=== PATIENT | female | born 1960 | race Caucasian/White ===

== ENCOUNTER 2017-08-26 06:46 | Inpatient (IN) | payer OTHER ==
[2017-08-26] MEDS ORDERED: ROCURONIUM 50 MG INJ ×2 (07:00→09:24)
[2017-08-26] MEDS ORDERED: EPHEDrine SULFATE 50 MG/5 ML SYG (07:00)
[2017-08-26] MEDS ORDERED: morphine SULFATE/PF (10 MG/10 ML) INJ (09:22)
[2017-08-26] MEDS ORDERED: ACETAMINOPHEN 1000MG/100ML IV 100 ML (09:22)
[2017-08-26] MEDS ORDERED: MIDAZOLAM 1 MG/ML 2 ML INJ ×3 (09:22→11:33)
[2017-08-26] MEDS ORDERED: CEFAZOLIN 1 GM INJ (09:22)
[2017-08-26] MEDS ORDERED: PROPOFOL 20 ML (09:22)
[2017-08-26] MEDS ORDERED: ROPIVACAINE 0.5 % 30 ML VIAL (09:23)
[2017-08-26] MEDS: LABETALOL HCL 20MG INJ IV (10:32)
[2017-08-26] MEDS ORDERED: TRANEXAMIC ACID 1,000 MG/10 ML VIAL IV (11:00)
[2017-08-26] MEDS: POLYMYXIN B 500000 UNIT INJ (12:09)
[2017-08-26] MEDS: BACITRACIN 50000 UNITS INJ (12:09)
[2017-08-26] MEDS: POLYMYXIN/BACITRACIN 1L IRRIG (12:10)
[2017-08-26] MEDS ORDERED: DEXAMETHASONE 4 MG/ML 1 ML INJ (12:25)
[2017-08-26] MEDS ORDERED: METOCLOPRAMIDE 10 MG INJ (12:25)
[2017-08-26] MEDS ORDERED: SUGAMMADEX SODIUM 200 MG/2 ML VIAL IV (12:25)
[2017-08-26] MEDS ORDERED: KETOROLAC 30 MG INJ (12:25)
[2017-08-26] MEDS ORDERED: ONDANSETRON 4 MG INJ (12:25)
[2017-08-26] MEDS ORDERED: FENTAnyl 50 MCG/ML VIAL IV ×3 (14:00)
[2017-08-26] MEDS ORDERED: METOCLOPRAMIDE 10 MG INJ IV (14:00)
[2017-08-26] MEDS ORDERED: EPHEDrine SULFATE 50 MG/5 ML SYG IV (14:00)
[2017-08-26] MEDS ORDERED: ACETAMINOPHEN 500 MG TAB PO (14:00)
[2017-08-26] MEDS ORDERED: DIPHENHYDRAMINE 50 MG INJ IV ×2 (14:00)
[2017-08-26] MEDS ORDERED: LABETALOL HCL 20MG INJ IV (14:00)
[2017-08-26] MEDS ORDERED: MEPERIDINE 25 MG INJ IV (14:00)
[2017-08-26] MEDS ORDERED: NALOXONE (0.4 MG/ML) INJ IV ×2 (14:00)
[2017-08-26] MEDS ORDERED: ALBUMIN HUMAN 5% 250 ML IV (14:00)
[2017-08-26] MEDS ORDERED: morphine 2 MG INJ IV (14:00)
[2017-08-26] MEDS ORDERED: HYDROmorphONE 0.5 MG/0.5 ML SYG IV ×2 (14:00)
[2017-08-26] MEDS ORDERED: hydrALAzine 20 MG INJ IV (14:00)
[2017-08-26] MEDS ORDERED: HYDROmorphONE (0.2 MG/ML) 10ML SYG IV ×3 (14:00)
[2017-08-26] MEDS ORDERED: oxyCODONE 5 MG TAB PO (14:00)
[2017-08-26] MEDS ORDERED: HYDROCODONE/APAP (5/325) TAB PO (14:00)
[2017-08-26] MEDS ORDERED: OXYCODONE/ACETAMINOPHEN (5/325) TAB PO ×2 (14:00)
[2017-08-26] MEDS ORDERED: NALBUPHINE HCL (10 MG/1 ML) INJ IV (14:00)
[2017-08-26] MEDS: ONDANSETRON 4 MG INJ IV ×2 (14:00→19:18)
[2017-08-26] MEDS ORDERED: ONDANSETRON 4 MG INJ IV ×2 (14:00)
[2017-08-26] MEDS: CEFAZOLIN 1 GM/50 ML (PMX) 50 ML IVPB ×2 (14:27→21:04)
[2017-08-26] MEDS: DOCUSATE SODIUM 100 MG CAP PO (14:28)
[2017-08-26] MEDS: morphine 2 MG INJ IV (21:04)
[2017-08-27] MEDS: ONDANSETRON 4 MG INJ IV ×2 (02:00→09:09)
[2017-08-27] MEDS: morphine 2 MG INJ IV ×3 (03:35→23:28)
[2017-08-27 04:58] LABS: ADD MAN DIFF? NO
[2017-08-27 05:01] LABS: BASOPHILS % 0.2 % (0.0-2.0); HEMATOCRIT 35.8 % (37.0-47.0); HEMOGLOBIN 12.2 g/dl (12.0-16.0); LYMPHOCYTES # 1.4 10^3/ul (0.8-2.9); MEAN CORPUSCULAR HEMOGLOBIN 32.6 pg (29.0-33.0); MEAN CORPUSCULAR HGB CONC 34.1 g/dl (32.0-37.0); MEAN CORPUSCULAR VOLUME 95.7 fl (82.0-101.0); MEAN PLATELET VOLUME 9.3 fl (7.4-10.4); MONOCYTE # 1.2 10^3/ul (0.3-0.9); MONOCYTES % 9.1 % (0.0-11.0); NEUTROPHIL # 10.1 10^3/ul (1.6-7.5); NEUTROPHILS % 79.5 % (39.0-77.0); PLATELET COUNT 268 10^3/UL (140-415); RED BLOOD COUNT 3.74 10^6/ul (4.20-5.40); RED CELL DISTRIBUTION WIDTH 13.5 % (11.5-14.5)
[2017-08-27 05:01] LABS: WHITE BLOOD COUNT 12.7 10^3/ul (4.8-10.8)
[2017-08-27] MEDS: CEFAZOLIN 1 GM/50 ML (PMX) 50 ML IVPB (05:28)
[2017-08-27 05:43] LABS: ANION GAP 16 (8-16); BLOOD UREA NITROGEN 26 mg/dl (7-20); CALCIUM 9.4 mg/dl (8.4-10.2); CARBON DIOXIDE 30 mmol/L (21-31); CHLORIDE 101 mmol/L (97-110); CREATININE 1.19 mg/dl (0.44-1.00); GLUCOSE 116 mg/dl (70-220); POTASSIUM 4.9 mmol/L (3.5-5.1); SODIUM 142 mmol/L (135-144)
[2017-08-27 06:28] LABS: ADD UMIC YES; UR ASCORBIC ACID 40 mg/dL (NEGATIVE); UR BILIRUBIN (Dip) NEGATIVE (NEGATIVE); UR BLOOD (Dip) NEGATIVE (NEGATIVE); UR CLARITY SLIGHTLY CLOUDY (CLEAR); UR COLOR YELLOW (YELLOW); UR GLUCOSE (Dip) NEGATIVE (NEGATIVE); UR KETONES (Dip) TRACE mg/dL (NEGATIVE); UR LEUKOCYTE ESTERASE (Dip) NEGATIVE Leu/ul (NEGATIVE); UR MUCUS MANY /HPF (NONE SEEN); UR NITRITE (Dip) NEGATIVE (NEGATIVE); UR RBC 4 /HPF (0-5); UR SPECIFIC GRAVITY (Dip) 1.034 (1.003-1.030); UR TOTAL PROTEIN (Dip) 1+ mg/dl (NEGATIVE); UR UROBILINOGEN (Dip) NEGATIVE (NEGATIVE); UR WBC 10 /HPF (0-5)
[2017-08-27] MEDS: DOCUSATE SODIUM 100 MG CAP PO ×2 (09:09→21:29)
[2017-08-27] MEDS: APIXABAN 5 MG TABLET PO ×2 (09:10→21:29)
[2017-08-27] MEDS: oxyCODONE 5 MG TAB PO ×3 (09:14→21:31)
[2017-08-27] MEDS: LOSARTAN 50 MG TAB PO (09:18)
[2017-08-27] MEDS: DIPHENHYDRAMINE 25 MG CAP PO (17:56)
[2017-08-28] MEDS: oxyCODONE 5 MG TAB PO ×5 (01:39→18:40)
[2017-08-28] MEDS: morphine 2 MG INJ IV ×3 (03:10→17:03)
[2017-08-28] MEDS: PANTOPRAZOLE (EC) 40 MG TAB PO (05:20)
[2017-08-28 05:30] LABS: ADD MAN DIFF? NO
[2017-08-28 05:44] LABS: WHITE BLOOD COUNT 10.3 10^3/ul (4.8-10.8)
[2017-08-28 05:44] LABS: BASOPHILS % 0.4 % (0.0-2.0); EOSINOPHILS % 0.4 % (0.0-7.0); HEMATOCRIT 32.3 % (37.0-47.0); HEMOGLOBIN 11.4 g/dl (12.0-16.0); LYMPHOCYTES # 1.4 10^3/ul (0.8-2.9); MEAN CORPUSCULAR HEMOGLOBIN 32.9 pg (29.0-33.0); MEAN CORPUSCULAR HGB CONC 35.3 g/dl (32.0-37.0); MEAN CORPUSCULAR VOLUME 93.1 fl (82.0-101.0); MEAN PLATELET VOLUME 9.6 fl (7.4-10.4); MONOCYTE # 0.8 10^3/ul (0.3-0.9); MONOCYTES % 8.1 % (0.0-11.0); NEUTROPHIL # 7.9 10^3/ul (1.6-7.5); NEUTROPHILS % 76.8 % (39.0-77.0); PLATELET COUNT 203 10^3/UL (140-415); RED BLOOD COUNT 3.47 10^6/ul (4.20-5.40); RED CELL DISTRIBUTION WIDTH 12.9 % (11.5-14.5)
[2017-08-28] MEDS: hydrALAzine 20 MG INJ IV (07:39)
[2017-08-28] MEDS: LOSARTAN 50 MG TAB PO (08:25)
[2017-08-28] MEDS: APIXABAN 5 MG TABLET PO ×2 (08:25→20:18)
[2017-08-28] MEDS: DOCUSATE SODIUM 100 MG CAP PO ×2 (08:25→20:18)
[2017-08-28] MEDS: ACETAMINOPHEN 325 MG TAB PO (20:18)
[2017-08-29] MEDS: oxyCODONE 5 MG TAB PO ×5 (04:30→21:07)
[2017-08-29 05:03] LABS: ADD MAN DIFF? NO
[2017-08-29 05:10] LABS: WHITE BLOOD COUNT 9.6 10^3/ul (4.8-10.8)
[2017-08-29 05:10] LABS: BASOPHILS % 0.4 % (0.0-2.0); EOSINOPHILS # 0.1 10^3/ul (0.0-0.5); EOSINOPHILS % 1.3 % (0.0-7.0); HEMATOCRIT 32.5 % (37.0-47.0); HEMOGLOBIN 11.5 g/dl (12.0-16.0); LYMPHOCYTES # 1.3 10^3/ul (0.8-2.9); LYMPHOCYTES % 13.3 % (15.0-51.0); MEAN CORPUSCULAR HEMOGLOBIN 33.1 pg (29.0-33.0); MEAN CORPUSCULAR HGB CONC 35.4 g/dl (32.0-37.0); MEAN CORPUSCULAR VOLUME 93.7 fl (82.0-101.0); MEAN PLATELET VOLUME 9.4 fl (7.4-10.4); MONOCYTES % 10.5 % (0.0-11.0); NEUTROPHIL # 7.2 10^3/ul (1.6-7.5); NEUTROPHILS % 74.2 % (39.0-77.0); PLATELET COUNT 193 10^3/UL (140-415); RED BLOOD COUNT 3.47 10^6/ul (4.20-5.40); RED CELL DISTRIBUTION WIDTH 13.1 % (11.5-14.5)
[2017-08-29] MEDS: PANTOPRAZOLE (EC) 40 MG TAB PO (05:49)
[2017-08-29] MEDS: APIXABAN 5 MG TABLET PO ×2 (08:54→20:07)
[2017-08-29] MEDS: DOCUSATE SODIUM 100 MG CAP PO ×2 (08:54→20:06)
[2017-08-29] MEDS: LOSARTAN 50 MG TAB PO (08:57)
[2017-08-29] MEDS: ACETAMINOPHEN 325 MG TAB PO (15:26)
[2017-08-29] MEDS: SENNA/DOCUSATE NA (8.6MG/50MG) TAB PO (20:06)
[2017-08-29] MEDS: MAGNESIUM HYDROXIDE 30ML CUP PO (20:06)
[2017-08-30] MEDS: oxyCODONE 5 MG TAB PO ×6 (01:57→20:52)
[2017-08-30 05:17] LABS: ADD MAN DIFF? NO
[2017-08-30 05:32] LABS: BASOPHILS % 0.6 % (0.0-2.0); EOSINOPHILS # 0.3 10^3/ul (0.0-0.5); EOSINOPHILS % 3.9 % (0.0-7.0); HEMATOCRIT 31.2 % (37.0-47.0); HEMOGLOBIN 10.8 g/dl (12.0-16.0); LYMPHOCYTES # 1.7 10^3/ul (0.8-2.9); LYMPHOCYTES % 23.3 % (15.0-51.0); MEAN CORPUSCULAR HEMOGLOBIN 32.5 pg (29.0-33.0); MEAN CORPUSCULAR HGB CONC 34.6 g/dl (32.0-37.0); MEAN PLATELET VOLUME 9.6 fl (7.4-10.4); MONOCYTE # 0.7 10^3/ul (0.3-0.9); MONOCYTES % 9.3 % (0.0-11.0); NEUTROPHIL # 4.5 10^3/ul (1.6-7.5); NEUTROPHILS % 62.8 % (39.0-77.0); PLATELET COUNT 240 10^3/UL (140-415); RED BLOOD COUNT 3.32 10^6/ul (4.20-5.40); RED CELL DISTRIBUTION WIDTH 13.2 % (11.5-14.5)
[2017-08-30 05:32] LABS: WHITE BLOOD COUNT 7.2 10^3/ul (4.8-10.8)
[2017-08-30 05:40] LABS: ANION GAP 11 (8-16); BLOOD UREA NITROGEN 15 mg/dl (7-20); CALCIUM 8.7 mg/dl (8.4-10.2); CARBON DIOXIDE 32 mmol/L (21-31); CHLORIDE 101 mmol/L (97-110); CREATININE 0.81 mg/dl (0.44-1.00); GLUCOSE 114 mg/dl (70-220); POTASSIUM 3.6 mmol/L (3.5-5.1); SODIUM 140 mmol/L (135-144)
[2017-08-30] MEDS: PANTOPRAZOLE (EC) 40 MG TAB PO (05:42)
[2017-08-30] MEDS: APIXABAN 5 MG TABLET PO ×2 (08:14→20:46)
[2017-08-30] MEDS: LOSARTAN 50 MG TAB PO (08:14)
[2017-08-30] MEDS: DIPHENHYDRAMINE 25 MG CAP PO (13:44)
[2017-08-30] MEDS: SENNA/DOCUSATE NA (8.6MG/50MG) TAB PO (17:12)
[2017-08-30] MEDS: MAGNESIUM HYDROXIDE 30ML CUP PO (20:52)
[2017-08-31] MEDS: PANTOPRAZOLE (EC) 40 MG TAB PO (05:48)
[2017-08-31 05:58] LABS: ADD MAN DIFF? NO
[2017-08-31 06:09] LABS: WHITE BLOOD COUNT 7.1 10^3/ul (4.8-10.8)
[2017-08-31 06:09] LABS: BASOPHILS % 0.6 % (0.0-2.0); EOSINOPHILS # 0.3 10^3/ul (0.0-0.5); EOSINOPHILS % 4.4 % (0.0-7.0); HEMATOCRIT 31.1 % (37.0-47.0); HEMOGLOBIN 10.7 g/dl (12.0-16.0); LYMPHOCYTES # 1.6 10^3/ul (0.8-2.9); LYMPHOCYTES % 23.2 % (15.0-51.0); MEAN CORPUSCULAR HEMOGLOBIN 32.2 pg (29.0-33.0); MEAN CORPUSCULAR HGB CONC 34.4 g/dl (32.0-37.0); MEAN CORPUSCULAR VOLUME 93.7 fl (82.0-101.0); MEAN PLATELET VOLUME 9.4 fl (7.4-10.4); MONOCYTE # 0.9 10^3/ul (0.3-0.9); NEUTROPHIL # 4.2 10^3/ul (1.6-7.5); NEUTROPHILS % 59.5 % (39.0-77.0); PLATELET COUNT 253 10^3/UL (140-415); RED BLOOD COUNT 3.32 10^6/ul (4.20-5.40); RED CELL DISTRIBUTION WIDTH 12.8 % (11.5-14.5)
[2017-08-31] MEDS: LOSARTAN 50 MG TAB PO (08:26)
[2017-08-31] MEDS: APIXABAN 5 MG TABLET PO (08:30)
[2017-08-31] MEDS: oxyCODONE 5 MG TAB PO ×3 (08:31→17:56)
== END 2017-08-31 18:55 | disposition home health service (06) | DRG 470 ==
LOC: REC 06:46 → MS1 15:50
PROC: 0SRC0J9 Replacement of Right Knee Joint with Synthetic Substitute, Cemented, Open Approach (ICD-10-PCS; principal; 2017-08-26 11:00)
DX: M17.11 Unilateral primary osteoarthritis, right knee (principal); I10 Essential (primary) hypertension; E78.5 Hyperlipidemia, unspecified; F41.9 Anxiety disorder, unspecified; F32.9 Major depressive disorder, single episode, unspecified; E66.9 Obesity, unspecified
CPT/HCPCS: 73560; 80048; 81001; 85025; 86850; 86900; 86901; 87086; 88304; 88311; 97110; 97116; 97163; 97530

== ENCOUNTER 2018-07-24 09:54 | Emergency (ER) | payer OTHER ==
[2018-07-24] MEDS ORDERED: ACETAMINOPHEN 325 MG TAB PO (10:30)
== END 2018-07-25 11:00 | disposition left against medical advice (07) ==
LOC: FTE 07-25 11:00
DX: H92.01 Otalgia, right ear (principal); I10 Essential (primary) hypertension
CPT/HCPCS: 93005; 99283-25

== ENCOUNTER 2018-09-20 12:40 | Inpatient (IN) | payer OTHER ==
[2018-09-20] MEDS ORDERED: MAGNESIUM HYDROXIDE 30ML CUP PO (16:30)
[2018-09-20] MEDS ORDERED: NACL 0.9% 3 ML SYG IV (16:30)
[2018-09-20] MEDS ORDERED: DOCUSATE SODIUM 100 MG CAP PO (16:30)
[2018-09-20] MEDS ORDERED: NITROGLYCERIN (SL) 0.4 MG TAB SL (16:30)
[2018-09-20] MEDS ORDERED: ALBUTEROL/IPRATROPIUM (NEB) 3 ML AMP HHN (16:30)
[2018-09-20] MEDS ORDERED: ONDANSETRON 4 MG INJ IV (16:30)
[2018-09-20 17:52] LABS: ETHANOL < 10.0 mg/dl (0-0)
[2018-09-20] MEDS: SOD CHLORIDE 0.45% 1,000 ML IV (18:11)
[2018-09-20] MEDS: ACETAMINOPHEN 325 MG TAB PO (18:12)
[2018-09-20] MEDS: GUAIFENESIN 20 MG/ML 5ML CUP PO (20:26)
[2018-09-20 20:42] LABS: ADD UMIC YES; UR ASCORBIC ACID NEGATIVE (NEGATIVE); UR BILIRUBIN (Dip) NEGATIVE (NEGATIVE); UR BLOOD (Dip) 1+ mg/dL (NEGATIVE); UR CLARITY CLEAR (CLEAR); UR COLOR AMBER (YELLOW); UR GLUCOSE (Dip) NEGATIVE (NEGATIVE); UR KETONES (Dip) NEGATIVE (NEGATIVE); UR LEUKOCYTE ESTERASE (Dip) NEGATIVE Leu/ul (NEGATIVE); UR NITRITE (Dip) NEGATIVE (NEGATIVE); UR RBC 0 /HPF (0-5); UR SPECIFIC GRAVITY (Dip) 1.004 (1.003-1.030); UR TOTAL PROTEIN (Dip) NEGATIVE (NEGATIVE); UR UROBILINOGEN (Dip) NEGATIVE (NEGATIVE); UR WBC 1 /HPF (0-5)
[2018-09-20 20:55] LABS: AMPHETAMINE/METHAMPHETAMINE Negative (NEGATIVE); BARBITURATES Negative (NEGATIVE); BENZODIAZEPINES Negative (NEGATIVE); CANNABINOIDS Negative (NEGATIVE); COCAINE Negative (NEGATIVE); OPIATES Negative (NEGATIVE)
[2018-09-20] MEDS: morphine 2 MG INJ IV (21:21)
[2018-09-21] MEDS: SOD CHLORIDE 0.45% 1,000 ML IV ×3 (05:47→16:00)
[2018-09-21 06:42] LABS: WHITE BLOOD COUNT 5.7 10^3/ul (4.8-10.8)
[2018-09-21 06:42] LABS: ADD MAN DIFF? NO; BASOPHILS % 0.5 % (0.0-2.0); EOSINOPHILS # 0.3 10^3/ul (0.0-0.5); EOSINOPHILS % 4.9 % (0.0-7.0); HEMATOCRIT 36.5 % (37.0-47.0); HEMOGLOBIN 12.7 g/dl (12.0-16.0); LYMPHOCYTES # 1.7 10^3/ul (0.8-2.9); LYMPHOCYTES % 29.1 % (15.0-51.0); MEAN CORPUSCULAR HEMOGLOBIN 31.8 pg (29.0-33.0); MEAN CORPUSCULAR HGB CONC 34.8 g/dl (32.0-37.0); MEAN CORPUSCULAR VOLUME 91.3 fl (82.0-101.0); MEAN PLATELET VOLUME 8.6 fl (7.4-10.4); MONOCYTE # 0.4 10^3/ul (0.3-0.9); MONOCYTES % 6.3 % (0.0-11.0); NEUTROPHIL # 3.3 10^3/ul (1.6-7.5); PLATELET COUNT 190 10^3/UL (140-415); RED CELL DISTRIBUTION WIDTH 11.9 % (11.5-14.5)
[2018-09-21 07:10] LABS: ANION GAP 4 (5-13); BLOOD UREA NITROGEN 12 mg/dl (7-20); CARBON DIOXIDE 35 mmol/L (21-31); CHLORIDE 100 mmol/L (97-110); CHOL/HDL RATIO 3.4 RATIO; CHOLESTEROL 154 mg/dl (100-200); CREATININE 1.02 mg/dl (0.44-1.00); Estimated GFR 56 mL/min (>60); GLUCOSE 104 mg/dl (70-220); HDL CHOLESTEROL 45 mg/dl (37-92); LDL CHOLESTEROL,CALCULATED 85 mg/dl; MAGNESIUM 2.1 mg/dl (1.7-2.5); PHOSPHORUS 4.5 mg/dl (2.5-4.9); POTASSIUM 4.1 mmol/L (3.5-5.1); SODIUM 139 mmol/L (135-144); TRIGLYCERIDES 122 mg/dl (0-149)
[2018-09-21 07:18] LABS: HEMOGLOBIN A1C 5.2 % (0-5.9)
[2018-09-21] MEDS: HYDROCODONE/APAP (5/325) TAB PO (12:34)
[2018-09-21] MEDS: hydrALAzine 20 MG INJ IV ×2 (13:26→21:03)
[2018-09-21] MEDS: LORAZEPAM 2 MG INJ IV (13:47)
[2018-09-21] MEDS ORDERED: LORAZEPAM 2 MG INJ IV (14:30)
[2018-09-21] MEDS ORDERED: CHLORDIAZEPOXIDE 25 MG CAP PO (14:30)
[2018-09-21] MEDS: CHLORDIAZEPOXIDE 25 MG CAP PO ×2 (15:59→20:41)
[2018-09-21] MEDS: HYDROCHLOROTHIAZIDE 25 MG TAB PO (15:59)
[2018-09-21] MEDS: LOSARTAN 50 MG TAB PO (15:59)
[2018-09-21] MEDS: ATORVASTATIN 20 MG TAB PO (20:41)
[2018-09-21] MEDS: LITHIUM CARBONATE 300 MG CAP PO (20:41)
[2018-09-21] MEDS: PROPRANOLOL 10 MG TAB PO (20:43)
[2018-09-21] MEDS: morphine 2 MG INJ IV (21:01)
[2018-09-21] MEDS: MULTIVITAMINS 10 ML, THIAMINE 100 MG, FOLIC ACID 1 MG in SOD CHLORIDE 0.9% 1,000 ML IVPB (21:09)
[2018-09-22] MEDS: HYDROCODONE/APAP (5/325) TAB PO ×2 (00:16→09:02)
[2018-09-22] MEDS: SOD CHLORIDE 0.45% 1,000 ML IV ×3 (03:50→20:11)
[2018-09-22] MEDS: morphine 2 MG INJ IV ×3 (05:59→20:16)
[2018-09-22 06:28] LABS: ADD MAN DIFF? NO
[2018-09-22 06:34] LABS: BASOPHILS % 0.4 % (0.0-2.0); EOSINOPHILS # 0.2 10^3/ul (0.0-0.5); EOSINOPHILS % 3.7 % (0.0-7.0); HEMATOCRIT 38.1 % (37.0-47.0); HEMOGLOBIN 13.1 g/dl (12.0-16.0); LYMPHOCYTES # 1.9 10^3/ul (0.8-2.9); LYMPHOCYTES % 37.2 % (15.0-51.0); MEAN CORPUSCULAR HEMOGLOBIN 31.6 pg (29.0-33.0); MEAN CORPUSCULAR HGB CONC 34.4 g/dl (32.0-37.0); MEAN CORPUSCULAR VOLUME 91.8 fl (82.0-101.0); MEAN PLATELET VOLUME 8.6 fl (7.4-10.4); MONOCYTE # 0.3 10^3/ul (0.3-0.9); MONOCYTES % 6.6 % (0.0-11.0); NEUTROPHIL # 2.7 10^3/ul (1.6-7.5); NEUTROPHILS % 51.9 % (39.0-77.0); PLATELET COUNT 205 10^3/UL (140-415); RED BLOOD COUNT 4.15 10^6/ul (4.20-5.40); RED CELL DISTRIBUTION WIDTH 11.8 % (11.5-14.5)
[2018-09-22 06:34] LABS: WHITE BLOOD COUNT 5.2 10^3/ul (4.8-10.8)
[2018-09-22 06:56] LABS: ANION GAP 6 (5-13); BLOOD UREA NITROGEN 12 mg/dl (7-20); CALCIUM 9.1 mg/dl (8.4-10.2); CARBON DIOXIDE 31 mmol/L (21-31); CHLORIDE 103 mmol/L (97-110); Estimated GFR > 60 mL/min (>60); GLUCOSE 111 mg/dl (70-220); POTASSIUM 3.7 mmol/L (3.5-5.1); SODIUM 140 mmol/L (135-144)
[2018-09-22] MEDS: HYDROCHLOROTHIAZIDE 25 MG TAB PO (08:50)
[2018-09-22] MEDS: PROPRANOLOL 10 MG TAB PO ×3 (08:51→20:11)
[2018-09-22] MEDS: CHLORDIAZEPOXIDE 25 MG CAP PO ×3 (08:51→20:07)
[2018-09-22] MEDS: LOSARTAN 50 MG TAB PO (08:52)
[2018-09-22] MEDS: MULTIVITAMINS 10 ML, THIAMINE 100 MG, FOLIC ACID 1 MG in SOD CHLORIDE 0.9% 1,000 ML IVPB (08:52)
[2018-09-22] MEDS ORDERED: HYDROCHLOROTHIAZIDE 25 MG TAB PO (09:00)
[2018-09-22] MEDS ORDERED: LOSARTAN 50 MG TAB PO (09:00)
[2018-09-22] MEDS: DULOXETINE 30 MG CAP DR PO (10:50)
[2018-09-22] MEDS: GUAIFENESIN 20 MG/ML 5ML CUP PO (14:59)
[2018-09-22 17:11] LABS: LITHIUM < 0.4 mmol/L (0.6-1.3)
[2018-09-22] MEDS: ATORVASTATIN 20 MG TAB PO (20:07)
[2018-09-22] MEDS: LITHIUM CARBONATE 300 MG CAP PO (20:07)
[2018-09-23 06:35] LABS: ADD MAN DIFF? NO
[2018-09-23 06:44] LABS: BASOPHILS % 0.6 % (0.0-2.0); EOSINOPHILS # 0.3 10^3/ul (0.0-0.5); EOSINOPHILS % 4.2 % (0.0-7.0); HEMATOCRIT 37.1 % (37.0-47.0); HEMOGLOBIN 12.7 g/dl (12.0-16.0); LYMPHOCYTES # 2.3 10^3/ul (0.8-2.9); LYMPHOCYTES % 34.9 % (15.0-51.0); MEAN CORPUSCULAR HEMOGLOBIN 31.1 pg (29.0-33.0); MEAN CORPUSCULAR HGB CONC 34.2 g/dl (32.0-37.0); MEAN CORPUSCULAR VOLUME 90.9 fl (82.0-101.0); MEAN PLATELET VOLUME 8.9 fl (7.4-10.4); MONOCYTE # 0.4 10^3/ul (0.3-0.9); MONOCYTES % 5.9 % (0.0-11.0); NEUTROPHIL # 3.5 10^3/ul (1.6-7.5); NEUTROPHILS % 54.2 % (39.0-77.0); PLATELET COUNT 225 10^3/UL (140-415); RED BLOOD COUNT 4.08 10^6/ul (4.20-5.40); RED CELL DISTRIBUTION WIDTH 11.8 % (11.5-14.5)
[2018-09-23 06:44] LABS: WHITE BLOOD COUNT 6.5 10^3/ul (4.8-10.8)
[2018-09-23 07:22] LABS: ANION GAP 6 (5-13); BLOOD UREA NITROGEN 13 mg/dl (7-20); CARBON DIOXIDE 30 mmol/L (21-31); CHLORIDE 105 mmol/L (97-110); CREATININE 1.03 mg/dl (0.44-1.00); Estimated GFR 55 mL/min (>60); GLUCOSE 99 mg/dl (70-220); SODIUM 141 mmol/L (135-144)
[2018-09-23] MEDS: HYDROCODONE/APAP (5/325) TAB PO (07:59)
[2018-09-23] MEDS: CHLORDIAZEPOXIDE 25 MG CAP PO ×2 (08:10→12:18)
[2018-09-23] MEDS: DULOXETINE 30 MG CAP DR PO (08:10)
[2018-09-23] MEDS: PROPRANOLOL 10 MG TAB PO ×2 (08:11→12:18)
[2018-09-23] MEDS: LOSARTAN 50 MG TAB PO (08:12)
[2018-09-23] MEDS: HYDROCHLOROTHIAZIDE 25 MG TAB PO (08:12)
[2018-09-23] MEDS: MULTIVITAMINS 10 ML, THIAMINE 100 MG, FOLIC ACID 1 MG in SOD CHLORIDE 0.9% 1,000 ML IVPB (10:24)
[2018-09-23] MEDS: morphine 2 MG INJ IV (12:18)
[2018-09-24] MEDS ORDERED: MULTIVITAMINS 10 ML, FOLIC ACID 1 MG in SOD CHLORIDE 0.9% 1,000 ML IVPB (09:00)
== END 2018-09-23 17:45 | disposition home or self-care (01) | DRG 885 ==
LOC: 5EC 09-23 06:51 → TEL 12:40
DX: F33.2 Major depressive disorder, recurrent severe without psychotic features (principal); F10.239 Alcohol dependence with withdrawal, unspecified; I10 Essential (primary) hypertension; E78.00 Pure hypercholesterolemia, unspecified; F41.9 Anxiety disorder, unspecified; F10.229 Alcohol dependence with intoxication, unspecified; Z88.0 Allergy status to penicillin; Z96.651 Presence of right artificial knee joint
CPT/HCPCS: 80048; 80061; 80178; 80307; 81001; 82962; 83036; 83735; 84100; 84439; 84443; 85025; 87081; 87086; 90686; 97162; 99217; G0378